=== PATIENT | male | born 1965 | race Caucasian/White ===

== ENCOUNTER → 2016-09-13 | Outpatient (CLI) | payer OTHER ==
[~2016-09-13] MED LIST: ATOM40 PO; ATOR40TA16 PO; ATOR40TA49 PO; BAYETES; GABA300C5 PO; GLUCTES27; GLUCTES27 XX; LEVEMIR SQ; LIPI10TA PO; MELO-1 PO; NOVOLOGP2 SQ; QUET100 PO; QUET1TAB9 PO; QUET5TAB PO; Z.0.INSULINSYR XX
[2016-09-13 15:06] LABS: URINE TOTAL PROTEIN TIMED LESS THAN 5.0 MG/DL
[2016-09-13 15:21] LABS: TOTAL PROTEIN 24 HOUR URINE 325 MG/24HR (0-150)
== END ==
LOC: CLAB 14:06
PROVIDERS: ATTEND Physician Assistant Medical
DX: E11.9 Type 2 diabetes mellitus without complications (principal)
CPT/HCPCS: 84157

== ENCOUNTER → 2016-09-15 | Outpatient (CLI) | payer OTHER ==
[~2016-09-15] MED LIST changes: -ATOR40TA49 PO; -GLUCTES27 XX; -LIPI10TA PO; -QUET100 PO
[2016-09-15 11:29] LABS: AUTOMATED NEUTROPHIL # 7.5 TH/MM3 (1.8-7.7); BASOPHIL # 0.1 TH/MM3 (0-0.2); BASOPHIL % 0.6 % (0.0-2.0); EOSINOPHIL % 0.1 % (0.0-4.0); HEMATOCRIT 42.4 % (39.0-51.0); HEMO FLAGS DIFF FINAL; LYMPH % 26.2 % (9.0-44.0); LYMPHOCYTE # 2.9 TH/MM3 (1.0-4.8); MEAN CELL VOLUME 89.5 FL (80.0-100.0); MEAN CORPUSCULAR HEMOGLOBIN 29.9 PG (27.0-34.0); MEAN CORPUSCULAR HGB CONC 33.4 % (32.0-36.0); MONO % 5.4 % (0.0-8.0); NEUT % 67.7 % (16.0-70.0); PLATELET COUNT 332 TH/MM3 (150-450); RED BLOOD COUNT 4.73 MIL/MM3 (4.50-5.90)
[2016-09-15 12:05] LABS: ALKALINE PHOSPHATASE 143 U/L (45-117); ALT (GPT) 134 U/L (12-78); ANION GAP 10 MEQ/L (5-15); AST (GOT) 111 U/L (15-37); BICARBONATE 27.4 MEQ/L (21.0-32.0); BLOOD UREA NITROGEN 15 MG/DL (7-18); CHLORIDE 98 MEQ/L (98-107); GLOMERULAR FILTRATION RATE 75 ML/MIN (>89); GLUCOSE,FASTING 114 MG/DL (74-99); LDL CHOLESTEROL 146 MG/DL (0-99); SODIUM (NA) 135 MEQ/L (136-145); TOTAL BILIRUBIN ADULT 0.5 MG/DL (0.2-1.0)
[2016-09-15 17:09] LABS: HEMOGLOBIN A1a 1.1 %; HEMOGLOBIN A1b 2.8 %; HEMOGLOBIN Ao 78.7 %; HEMOGLOBIN LA1C 2.3 %; HEMOGLOBIN P3 4.3 %
== END ==
LOC: CLAB 11:07
PROVIDERS: ATTEND Family Medicine
DX: E11.9 Type 2 diabetes mellitus without complications (principal); F41.9 Anxiety disorder, unspecified; E78.5 Hyperlipidemia, unspecified; G62.9 Polyneuropathy, unspecified
CPT/HCPCS: 36415; 80053; 80061; 83036; 84443; 85025